=== PATIENT | male | born 1955 | race Two or more races ===

== ENCOUNTER 2021-07-13 19:59 | Emergency (ER) | payer SELFPAY ==
[~2021-07-13] VITALS: Ht 165.1 cm; Wt 79.5 kg
[2021-07-13] MEDS ORDERED: HTN meds PO (20:47)
[2021-07-13] MEDS ORDERED: HIGH CHOLESTEROL PO (20:47)
[2021-07-13 23:00] VITALS: BP 151/76
[2021-07-13] MEDS ORDERED: THIAMINE 100 MG TABLET PO ONE (23:15)
[2021-07-13] MEDS ORDERED: LORazepam 2 MG TABLET PO ONE (23:15)
== END 2021-07-13 23:21 | disposition home or self-care (01) ==
LOC: EMS 20:01
DX: F10.239 Alcohol dependence with withdrawal, unspecified (principal); I10 Essential (primary) hypertension; E78.00 Pure hypercholesterolemia, unspecified; Z79.899 Other long term (current) drug therapy; Y90.9 Presence of alcohol in blood, level not specified
CPT/HCPCS: 99283

== ENCOUNTER 2021-12-31 15:37 | Emergency (ER) | payer MEDICARE, MEDICAID ==
[~2021-12-31] VITALS: Ht 162.6 cm; Wt 77.3 kg
[~2021-12-31 15:37] MED LIST: HIGH CHOLESTEROL PO; HTN meds PO
[2021-12-31] MEDS ORDERED: CAND1TAB14 PO (15:46)
[2021-12-31 15:56] VITALS: BP 103/61
[2021-12-31] MEDS ORDERED: HYDROGEN PEROXIDE 118 ML SOLUTION ONE ×2 (16:01→17:03)
[2021-12-31] MEDS ORDERED: LIDOCAINE 1%/EPI 1:100,000 30 ML VIAL SQ ONE (17:30)
[2021-12-31] MEDS ORDERED: PERTUSS(ACELL),DIPH,TET VAC/PF 0.5 ML SYRINGE IM. ONE (18:15)
== END 2021-12-31 18:31 | disposition home or self-care (01) ==
LOC: EMS 15:38
DX: S06.0X9A Concussion with loss of consciousness of unspecified duration, initial encounter (principal); S01.91XA Laceration without foreign body of unspecified part of head, initial encounter; F41.9 Anxiety disorder, unspecified; F32.9 Major depressive disorder, single episode, unspecified; E78.00 Pure hypercholesterolemia, unspecified; I10 Essential (primary) hypertension; W50.0XXA Accidental hit or strike by another person, initial encounter; Y93.89 Activity, other specified; Y92.89 Other specified places as the place of occurrence of the external cause; Y99.8 Other external cause status
CPT/HCPCS: 70450; 72125; 90471; 90715; 99284; J3490